=== PATIENT | male | born 1955 | race Caucasian/White ===

== ENCOUNTER 2018-06-15 11:03 | Inpatient (IN) ==
[2018-06-15] MEDS ORDERED: ENOXAPARIN 100 MG/ML SYRINGE SUBCUT STA (13:14)
[2018-06-15] MEDS ORDERED: ASPIRIN 325 MG TABLET PO STA (13:14)
[2018-06-15 13:19] LABS: Basophils # 0.1 10*3/uL (0.0-0.2); Basophils % 1.1 % (0.0-0.8); Eosinophils % 0.5 % (0.00-10.9); Hematocrit 43.7 VOL% (42.0-52.0); Hemoglobin 13.7 GM/DL (14.0-18.0); Immature Granulocytes % 0.7 %; Immature Granulocytes Absolute 0.06 #; Lymphocytes # 0.9 10*3/uL (1.4-4.0); Lymphocytes % 10.7 % (21.2-54.2); Mean Corpuscular HGB Conc 31.4 GM/DL (32-36); Mean Corpuscular Hemoglobin 29 PG (27-34); Mean Corpuscular Volume 93.4 FL (87-102); Mean Platelet Volume 11.4 FL (9.6-12.0); Monocytes # 0.8 10*3/uL (0.11-0.8); Monocytes % 8.9 % (1.7-12.7); Neutrophils # 6.9 10*3/uL (1.4-7.4); Neutrophils % 78.1 % (38.7-73.9); Platelet Count 269 T/CUMM (130-400); Red Blood Count 4.68 MC/CUMM (3.8-5.5); Red Cell Distribution Width 14.6 % (9.3-17.3); White Blood Count 8.8 T/CUMM (4-12)
[2018-06-15 13:45] LABS: Calcium 9.3 MG/DL (8.5-10.1); Osmolality,Calculated 294.3 MOS/KG (273-304)
[2018-06-15 14:00] LABS: Potassium 6.2 MMOL/L (3.5-5.1)
[2018-06-15] MEDS ORDERED: SODIUM CHLORIDE 0.9% 1,000 ML IV STA (14:01)
[2018-06-15] MEDS ORDERED: guaiFENesin/DM ER 600-30 MG TABLET PO PRN (15:28)
[2018-06-15] MEDS ORDERED: DOCUSATE SODIUM 100 MG CAPSULE PO PRN (15:28)
[2018-06-15] MEDS ORDERED: NICOTINE 21 MG/24 HR PATCH TRANSDERM PRN (15:28)
[2018-06-15] MEDS ORDERED: diphenhydrAMINE CAP 25 MG CAPSULE PO PRN (15:28)
[2018-06-15] MEDS ORDERED: ONDANSETRON 4 MG/2 ML VIAL IV PRN (15:28)
[2018-06-15] MEDS ORDERED: ACETAMINOPHEN 325 MG TABLET PO PRN (15:28)
[2018-06-15] MEDS ORDERED: SODIUM CHLORIDE 0.9% 1,000 ML IV SCH (15:30)
[2018-06-15] MEDS ORDERED: ENOXAPARIN 30 MG/0.3 ML SYRINGE SUBCUT SCH (15:30)
[2018-06-15] MEDS ORDERED: SODIUM POLYSTYRENE SULFATE 15 GM/60 ML BOTTLE PO ONE (15:32)
[2018-06-15] MEDS ORDERED: ISOSORBIDE MONONITRATE 30 MG TABLET PO SCH (16:00)
[2018-06-15] MEDS ORDERED: ALBUTEROL/IPRATROPIUM 3 ML NEB RESP TX SCH (16:00)
[2018-06-15 18:15] LABS: CKMB % 14.1 %
[2018-06-15 18:18] LABS: Troponin I 88.4 NG/ML (0.00-0.045)
[2018-06-15] MEDS: LORazepam 1 MG TABLET PO PRN (18:31)
[2018-06-15] MEDS: CARVEDILOL 3.125 MG TABLET PO SCH ×2 (18:31→21:08)
[2018-06-15] MEDS: miSOPROStol 200 MCG TABLET PO SCH ×2 (18:31→20:58)
[2018-06-15] MEDS: PANTOPRAZOLE 40 MG TABLET PO SCH (18:31)
[2018-06-15] MEDS: SODIUM BICARB INJ 150 MEQ in DEXTROSE 5% 850 ML IV SCH (18:31)
[2018-06-15] MEDS ORDERED: NITROGLYCERIN DRIP 50 MG/250 ML BOTTLE IV PRN (19:31)
[2018-06-15] MEDS: ALBUTEROL/IPRATROPIUM 3 ML NEB RESP TX SCH (19:46)
[2018-06-15 19:59] LABS: Parathyroid Hormone Intact 273.7 PG/ML (18.4-80.1)
[2018-06-15 20:43] LABS: HIV Antigen/Antibody Result Nonreactive (Nonreactive); Hepatitis A Ab IgM Quant 0.07 Index; Hepatitis A Ab IgM Result Negative (Negative); Hepatitis B Core IgM Quant 0.18 Index; Hepatitis B Core IgM Result Negative (Negative); Hepatitis B Surface Ag Quant < 0.10 Index; Hepatitis B Surface Ag Result Negative (Negative); Hepatitis C Virus Ab Quant 0.08 Index; Hepatitis C Virus Ab Result Negative (Negative)
[2018-06-15] MEDS: ACETYLCYSTEINE 600 MG CAPSULE PO SCH (20:57)
[2018-06-15] MEDS ORDERED: ROSUVASTATIN 20 MG TABLET PO SCH (21:00)
[2018-06-15 21:47] LABS: CKMB % 13.4 %
[2018-06-15] MEDS: MORPHINE 4 MG/1 ML VIAL IV PRN (22:11)
[2018-06-16] MEDS: MORPHINE 4 MG/1 ML VIAL IV PRN (01:39)
[2018-06-16] MEDS: LORazepam 1 MG TABLET PO PRN ×2 (02:22→07:47)
[2018-06-16] MEDS: ALBUTEROL/IPRATROPIUM 3 ML NEB RESP TX SCH ×3 (02:45→13:01)
[2018-06-16] MEDS: SODIUM BICARB INJ 150 MEQ in DEXTROSE 5% 850 ML IV SCH ×3 (03:10→11:22)
[2018-06-16 03:47] LABS: Basophils # 0.1 10*3/uL (0.0-0.2); Basophils % 1.5 % (0.0-0.8); Eosinophils # 0.1 10*3/uL (0.0-0.87); Eosinophils % 1.7 % (0.00-10.9); Hematocrit 33.2 VOL% (42.0-52.0); Hemoglobin 10.5 GM/DL (14.0-18.0); Immature Granulocytes % 0.3 %; Immature Granulocytes Absolute 0.02 #; Lymphocytes # 1.4 10*3/uL (1.4-4.0); Lymphocytes % 21.8 % (21.2-54.2); Mean Corpuscular HGB Conc 31.6 GM/DL (32-36); Mean Corpuscular Hemoglobin 28 PG (27-34); Mean Corpuscular Volume 89.7 FL (87-102); Mean Platelet Volume 11.5 FL (9.6-12.0); Monocytes # 0.6 10*3/uL (0.11-0.8); Monocytes % 8.6 % (1.7-12.7); Neutrophils # 4.4 10*3/uL (1.4-7.4); Neutrophils % 66.1 % (38.7-73.9); Platelet Count 243 T/CUMM (130-400); Red Cell Distribution Width 14.4 % (9.3-17.3); White Blood Count 6.6 T/CUMM (4-12)
[2018-06-16 04:12] LABS: Alanine Aminotransferase 55 U/L (16-61); Albumin 2.9 G/DL (3.4-5.0); Alkaline Phosphatase 74 U/L (45-117); Aspartate Amino Transferase 222 U/L (0-37); Bilirubin,Total < 0.39 MG/DL (0.2-1.0); Blood Urea Nitrogen 40 MG/DL (7-18); Calcium 8.2 MG/DL (8.5-10.1); Cholesterol 197 MG/DL (50-200); Glucose 125 MG/DL (74-106); HDL Cholesterol 26 MG/DL (40-60); Osmolality,Calculated 293.1 MOS/KG (273-304); Potassium 5.4 MMOL/L (3.5-5.1); Risk Ratio 7.58; Sodium 142 MMOL/L (136-145); Thyroid Stimulating Hormone 0.777 uIU/ml (0.358-3.74); Total Protein 5.8 G/DL (6.4-8.3); Triglycerides 173 MG/DL (2-150); VLDL CHOLESTEROL 34.6 MG/DL
[2018-06-16 08:05] LABS: Apearance,Urine CLEAR (Clear); Bilirubin,Urine Negative (Negative); Blood, Urine Moderate mg/dL (Negative); Glucose,Urine (UA) Negative (Negative); Ketones,Urine Negative (Negative); Nitrite,Urine Negative (Negative); Protein,Urine Negative; RBC,Urine 6 /HPF (0-4); Urine Color Straw (Yellow); Urine Specific Gravity 1.009 (1.001-1.035); Urine Urobilinogen < 2.0 EU/DL (0.2-1.0); WBC,Urine 1 /HPF (0-6)
[2018-06-16] MEDS ORDERED: POTASSIUM CHLORIDE RIDER 10 MEQ in PREMIX 1 EACH IV PRN ×2 (08:27→15:12)
[2018-06-16] MEDS ORDERED: DIAZEPAM 5 MG TABLET PO ONE (08:27)
[2018-06-16] MEDS ORDERED: MAGNESIUM SULF RIDER 2 GM in PREMIX 1 EACH IV PRN ×2 (08:27→15:12)
[2018-06-16] MEDS ORDERED: diphenhydrAMINE CAP 25 MG CAPSULE PO ONE (08:27)
[2018-06-16] MEDS ORDERED: HEPARIN/NACL 0.9% 2 UNITS/ML 1,000 ML IV ONE (08:31)
[2018-06-16] MEDS ORDERED: MIDAZOLAM 2 MG/2 ML VIAL ONE (08:54)
[2018-06-16] MEDS ORDERED: fentaNYL 100 MCG/2 ML VIAL ONE (08:55)
[2018-06-16] MEDS ORDERED: ASPIRIN EC 325 MG TABLET PO SCH ×2 (09:00→09:30)
[2018-06-16] MEDS ORDERED: HEPARIN 5,000 UNIT/1 ML VIAL ONE (09:13)
[2018-06-16 09:15] LABS: Creatinine,Urine Random 72 MG/DL; Total Protein,Urine Random 31 MG/DL; Urea Nitrogen, Urine Random 531 MG/DL
[2018-06-16] MEDS ORDERED: HEPARIN DRIP 25,000 UNITS/500 ML PREMIX IV ONE (09:24)
[2018-06-16] MEDS ORDERED: PAPAVERINE 60 MG/2 ML VIAL ONE (09:34)
[2018-06-16] MEDS ORDERED: VANCOMYCIN 1,000 MG VIAL ONE (09:34)
[2018-06-16] MEDS ORDERED: LIDOCAINE 1%/EPI INJ 20 ML VIAL ONE (09:38)
[2018-06-16] MEDS ORDERED: SODIUM CHLORIDE 0.9% 1,000 ML IV PRN (09:50)
[2018-06-16] MEDS: ACETYLCYSTEINE 600 MG CAPSULE PO SCH (10:05)
[2018-06-16] MEDS: CARVEDILOL 3.125 MG TABLET PO SCH (10:05)
[2018-06-16] MEDS: miSOPROStol 200 MCG TABLET PO SCH ×2 (10:05→13:01)
[2018-06-16] MEDS: PANTOPRAZOLE 40 MG TABLET PO SCH (10:05)
[2018-06-16] MEDS ORDERED: PHENYLEPHRINE DRIP 40 MG/250 ML PREMIX IV ONE (10:45)
[2018-06-16] MEDS ORDERED: NITROPRUSSIDE 50 MG/2 ML VIAL ONE (10:45)
[2018-06-16] MEDS ORDERED: CEFUROXIME 1,500 MG VIAL ONE (10:46)
[2018-06-16] MEDS ORDERED: ALBUMIN 5% 12.5 GM/250 ML VIAL IV ONE (10:46)
[2018-06-16 10:52] LABS: ABG Base Excess -5.2 MMOL/L (-2.5-2.5); ABG HCO3 20.2 MMOL/L (20-26); ABG Oxygen Saturation 99.5 % (95-100); ABG PCO2 39.1 MM HG (35-48); ABG PH 7.326 (7.35-7.45); ABG TCO2 18.7 MMOL/L (23-27); Glucose Heart Surgery 137 MG/DL (74-106); Hematocrit Heart Surgery 31.5 PERCENT (42-52); Hemoglobin Heart Surgery 10.2 G/DL (14.0-18.0); Ionized Calcium Arterial 1.16 MMOL/L (1.21-1.46); PCO2 Patient Temp Arterial 39.1 MMHG; PH Patient Temp Arterial 7.326; Patient Temperature 37 CELCIUS; Potassium Heart/CVR 4.6 MMOL/L (3.5-5.1); Sodium Heart/CVR 139 MMOL/L (135-145)
[2018-06-16 12:22] LABS: Hematocrit Heart Surgery 21.8 PERCENT (42-52); PCO2 Patient Temp Venous 35.9 MM HG; PH Patient Temp Venous 7.419; PO2 Patient Temp Venous 35.5 MM HG; Potassium Heart/CVR 5.5 MMOL/L (3.5-5.1); VBG Base Excess -0.9 MEQ/L (0-4); VBG HCO3 23.4 MEQ/L (24-28); VBG Oxygen Saturation 76.3 %; VBG PCO2 39.5 MMHG (41-51); VBG PH 7.389; VBG PO2 40.8 MMHG (17-40)
[2018-06-16 12:58] LABS: Hematocrit Heart Surgery 25.3 PERCENT (42-52); Hemoglobin Heart Surgery 8.1 G/DL (14.0-18.0); PCO2 Patient Temp Venous 39.3 MM HG; PH Patient Temp Venous 7.369; PO2 Patient Temp Venous 43.5 MM HG; VBG Base Excess -2.4 MEQ/L (0-4); VBG HCO3 22.2 MEQ/L (24-28); VBG Oxygen Saturation 78.9 %; VBG PCO2 39.3 MMHG (41-51); VBG PH 7.369; VBG PO2 43.5 MMHG (17-40)
[2018-06-16] MEDS ORDERED: ENOXAPARIN 80 MG/0.8 ML SYRINGE SUBCUT SCH (13:00)
[2018-06-16 13:20] LABS: Hematocrit Heart Surgery 22.5 PERCENT (42-52); Hemoglobin Heart Surgery 7.2 G/DL (14.0-18.0); PCO2 Patient Temp Venous 36.4 MM HG; PH Patient Temp Venous 7.393; PO2 Patient Temp Venous 36.6 MM HG; Potassium Heart/CVR 5.4 MMOL/L (3.5-5.1); VBG Base Excess -2.4 MEQ/L (0-4); VBG HCO3 22.1 MEQ/L (24-28); VBG Oxygen Saturation 70.6 %; VBG PCO2 36.4 MMHG (41-51); VBG PH 7.393; VBG PO2 36.6 MMHG (17-40)
[2018-06-16 14:13] LABS: ABG Base Excess -4.5 MMOL/L (-2.5-2.5); ABG HCO3 20.2 MMOL/L (20-26); ABG Oxygen Saturation 98.2 % (95-100); ABG PCO2 35.1 MM HG (35-48); ABG PH 7.378 (7.35-7.45); ABG TCO2 21.3 MMOL/L (23-27); Glucose Heart Surgery 205 MG/DL (74-106); Hemoglobin Heart Surgery 7.2 G/DL (14.0-18.0); Ionized Calcium Arterial 1.06 MMOL/L (1.21-1.46); Potassium Heart/CVR 4.2 MMOL/L (3.5-5.1); Sodium Heart/CVR 134 MMOL/L (135-145)
[2018-06-16 14:14] LABS: Patient Temperature 37 CELCIUS
[2018-06-16] MEDS ORDERED: ALBUMIN 25% 25 GM/100 ML VIAL IV ONE (14:20)
[2018-06-16] MEDS ORDERED: MAGNESIUM SULFATE 10 GM/20 ML VIAL IV ONE (14:20)
[2018-06-16] MEDS ORDERED: DEXTROSE 5% KCL 20 MEQ 20 MEQ/1,000 ML BAG IV ONE (14:20)
[2018-06-16] MEDS ORDERED: PROTAMINE SULFATE 250 MG/25 ML VIAL IV ONE (14:20)
[2018-06-16] MEDS ORDERED: HEPARIN 10,000 UNIT/10 ML VIAL ONE (14:21)
[2018-06-16] MEDS ORDERED: FUROSEMIDE 20 MG/2 ML VIAL ONE ×2 (14:21→15:09)
[2018-06-16] MEDS ORDERED: MANNITOL 12.5 GM/50 ML VIAL IV ONE (14:21)
[2018-06-16] MEDS ORDERED: SODIUM BICARBONATE 50 MEQ/50 ML SYRINGE IV ONE ×2 (14:22→15:10)
[2018-06-16] MEDS ORDERED: methylPREDNISolone SOD SUC 1,000 MG/8 ML VIAL ONE (14:22)
[2018-06-16] MEDS ORDERED: HEPARIN/NACL 0.9% 2 UNITS/ML 500 ML IV ONE (15:09)
[2018-06-16] MEDS ORDERED: SEVOFLURANE 1 UNIT/15 MINUTE INH ONE (15:09)
[2018-06-16] MEDS ORDERED: SUFentanil 250 MCG/5 ML AMP ONE (15:09)
[2018-06-16] MEDS ORDERED: MIDAZOLAM 10 MG/2 ML VIAL ONE (15:09)
[2018-06-16] MEDS ORDERED: SODIUM CHLORIDE 0.9% 250 ML IV ONE (15:10)
[2018-06-16] MEDS ORDERED: ETOMIDATE 40 MG/20 ML VIAL IV ONE (15:10)
[2018-06-16] MEDS ORDERED: NITROGLYCERIN DRIP 50 MG/250 ML BOTTLE IV ONE (15:10)
[2018-06-16] MEDS ORDERED: SODIUM CHLORIDE 0.9% 100 ML IV ONE (15:10)
[2018-06-16] MEDS ORDERED: LACTATED RINGERS 1,000 ML IV ONE (15:10)
[2018-06-16] MEDS ORDERED: PHENYLEPHRINE 10 MG/1 ML VIAL IV ONE (15:10)
[2018-06-16] MEDS ORDERED: PROTAMINE SULFATE 50 MG/5 ML VIAL IV ONE ×3 (15:10→15:33)
[2018-06-16] MEDS ORDERED: SODIUM CHLORIDE 0.9% 1,000 ML IV ONE (15:10)
[2018-06-16] MEDS ORDERED: AMINOCAPROIC ACID 5,000 MG/20 ML VIAL IV ONE (15:10)
[2018-06-16] MEDS ORDERED: VECURONIUM 10 MG VIAL IV ONE (15:10)
[2018-06-16] MEDS ORDERED: POTASSIUM CHLORIDE RIDER 20 MEQ in PREMIX 1 EACH IV PRN (15:12)
[2018-06-16] MEDS ORDERED: ONDANSETRON 4 MG/2 ML VIAL IV PRN (15:12)
[2018-06-16] MEDS ORDERED: ACETAMINOPHEN 650 MG SUPP RECTAL PRN (15:12)
[2018-06-16] MEDS ORDERED: MAGNESIUM SULF RIDER 4 GM in PREMIX 1 EACH IV PRN (15:12)
[2018-06-16] MEDS ORDERED: INSULIN REGULAR 100 UNIT/ML IV PRN (15:12)
[2018-06-16] MEDS ORDERED: MORPHINE 10 MG/1 ML VIAL IV PRN (15:12)
[2018-06-16] MEDS ORDERED: CALCIUM CHLORIDE 1,000 MG/10 ML SYRINGE IV PRN (15:12)
[2018-06-16] MEDS ORDERED: PHENYLEPHRINE DRIP 40 MG/250 ML PREMIX IV PRN (15:12)
[2018-06-16] MEDS ORDERED: MIDAZOLAM 2 MG/2 ML VIAL IV PRN (15:12)
[2018-06-16] MEDS ORDERED: LACTATED RINGERS 250 ML IV PRN (15:12)
[2018-06-16] MEDS ORDERED: VECURONIUM 10 MG VIAL IV PRN ×2 (15:12)
[2018-06-16] MEDS ORDERED: INSULIN REGULAR 100 UNIT/ML IV ONE (15:12)
[2018-06-16] MEDS ORDERED: DEXTROSE 50% 25 GM/50 ML VIAL IV PRN ×2 (15:12)
[2018-06-16 15:29] LABS: ABG Base Excess -0.4 MMOL/L (-2.5-2.5); ABG HCO3 24.1 MMOL/L (20-26); ABG Oxygen Saturation 98.4 % (95-100); ABG PH 7.385 (7.35-7.45); ABG TCO2 22.8 MMOL/L (23-27); Glucose Heart Surgery 190 MG/DL (74-106); Hematocrit Heart Surgery 26.1 PERCENT (42-52); Hemoglobin Heart Surgery 8.4 G/DL (14.0-18.0); Potassium Heart/CVR 4.4 MMOL/L (3.5-5.1)
[2018-06-16] MEDS ORDERED: SODIUM CHLORIDE 0.45% 1,000 ML IV SCH ×2 (15:30)
[2018-06-16] MEDS ORDERED: INSULIN REGULAR DRIP 100 ML IV SCH (15:30)
[2018-06-16 15:32] LABS: Basophils # 0.1 10*3/uL (0.0-0.2)
[2018-06-16 15:44] LABS: INR 1.2; PT Patient Result 12.4 SECS; Partial Thromboplastin Time 28.9 SECS (0-40)
[2018-06-16] MEDS: NITROPRUSSIDE 100 MG in DEXTROSE 5% 250 ML IV PRN ×2 (15:45→22:19)
[2018-06-16 16:03] LABS: Basophils % 0.5 % (0.0-0.8); Eosinophils # 0.1 10*3/uL (0.0-0.87); Eosinophils % 0.7 % (0.00-10.9); Hematocrit 24.3 VOL% (42.0-52.0); Immature Granulocytes % 0.8 %; Immature Granulocytes Absolute 0.09 #; Lymphocytes # 0.5 10*3/uL (1.4-4.0); Lymphocytes % 4.2 % (21.2-54.2); Mean Corpuscular HGB Conc 32.5 GM/DL (32-36); Mean Corpuscular Hemoglobin 29 PG (27-34); Mean Platelet Volume 11.7 FL (9.6-12.0); Monocytes # 0.4 10*3/uL (0.11-0.8); Neutrophils # 9.9 10*3/uL (1.4-7.4); Neutrophils % 89.8 % (38.7-73.9); Red Cell Distribution Width 14.3 % (9.3-17.3)
[2018-06-16 16:04] LABS: Albumin 2.9 G/DL (3.4-5.0); Bilirubin,Total 0.4 MG/DL (0.2-1.0); Calcium 9.5 MG/DL (8.5-10.1); Osmolality,Calculated 294.1 MOS/KG (273-304); Potassium 4.5 MMOL/L (3.5-5.1); Total Protein 5.1 G/DL (6.4-8.3)
[2018-06-16 16:07] LABS: Hemoglobin 7.9 GM/DL (14.0-18.0); Red Blood Count 2.73 MC/CUMM (3.8-5.5)
[2018-06-16 16:08] LABS: Platelet Count 138 T/CUMM (130-400)
[2018-06-16 16:17] LABS: CKMB % 7.9 %
[2018-06-16 16:19] LABS: Troponin I 93.9 NG/ML (0.00-0.045)
[2018-06-16] MEDS: SODIUM CHLORIDE 0.9% 1,000 ML IV PRN ×3 (16:53→23:45)
[2018-06-16 17:03] LABS: Band Neutrophils 2 % (0-10); Eosinophils 1 % (0-10); Lymphocytes 5 % (20-55); Platelet Estimate Decreased; Segmented Neutrophils 89 % (50-85); Total Cells Counted 100
[2018-06-16 17:04] LABS: Anisocytosis 1+; Hypochromasia 1+
[2018-06-16 17:09] LABS: Hematocrit Heart Surgery 30.3 PERCENT (42-52); Hemoglobin Heart Surgery 9.8 G/DL (14.0-18.0); PCO2 Patient Temp Venous 45.9 MM HG; PH Patient Temp Venous 7.349; PO2 Patient Temp Venous 35.2 MM HG; Potassium Heart/CVR 4.4 MMOL/L (3.5-5.1); VBG Base Excess -0.6 MEQ/L (0-4); VBG HCO3 23.4 MEQ/L (24-28); VBG Oxygen Saturation 67.5 %; VBG PCO2 45.9 MMHG (41-51); VBG PH 7.349; VBG PO2 35.2 MMHG (17-40)
[2018-06-16] MEDS: ALBUMIN 5% 12.5 GM in PREMIX 1 EACH IV PRN ×3 (18:10→20:10)
[2018-06-16 18:14] LABS: ABG Base Excess -1.8 MMOL/L (-2.5-2.5); ABG HCO3 22.9 MMOL/L (20-26); ABG Oxygen Saturation 97.9 % (95-100); ABG PCO2 40.3 MM HG (35-48); ABG PH 7.369 (7.35-7.45); ABG TCO2 21.4 MMOL/L (23-27); Glucose Heart Surgery 184 MG/DL (74-106); Hematocrit Heart Surgery 29.2 PERCENT (42-52); Hemoglobin Heart Surgery 9.4 G/DL (14.0-18.0); Potassium Heart/CVR 4.3 MMOL/L (3.5-5.1)
[2018-06-16] MEDS: MIDAZOLAM 10 MG/2 ML VIAL IV PRN (19:13)
[2018-06-16 19:42] LABS: ABG Base Excess -3.1 MMOL/L (-2.5-2.5); ABG HCO3 21.8 MMOL/L (20-26); ABG PCO2 40.7 MM HG (35-48); ABG PH 7.348 (7.35-7.45); ABG TCO2 20.5 MMOL/L (23-27); Glucose Heart Surgery 198 MG/DL (74-106); Hematocrit Heart Surgery 29.5 PERCENT (42-52); Hemoglobin Heart Surgery 9.5 G/DL (14.0-18.0); Potassium Heart/CVR 4.2 MMOL/L (3.5-5.1)
[2018-06-16] MEDS ORDERED: INSULIN LISPRO 100 UNIT/ML SUBCUT SCH (22:00)
[2018-06-16] MEDS: INSULIN REGULAR 100 UNIT/ML SUBCUT SCH (22:45)
[2018-06-16] MEDS: CHLORHEXIDINE 0.12% ORAL RINSE 60 ML BOTTLE SWISH/SPIT SCH (22:46)
[2018-06-16] MEDS: CEFUROXIME INJ 1,500 MG in SYRINGE 1 EACH IV SCH (23:04)
[2018-06-16 23:47] LABS: ABG Base Excess -1.4 MMOL/L (-2.5-2.5); ABG HCO3 23.3 MMOL/L (20-26); ABG Oxygen Saturation 98.8 % (95-100); ABG PH 7.428 (7.35-7.45); ABG TCO2 20.5 MMOL/L (23-27); Glucose Heart Surgery 175 MG/DL (74-106); Hematocrit Heart Surgery 29.3 PERCENT (42-52); Hemoglobin Heart Surgery 9.5 G/DL (14.0-18.0); Potassium Heart/CVR 4.2 MMOL/L (3.5-5.1)
[2018-06-17] MEDS: MIDAZOLAM 10 MG/2 ML VIAL IV PRN (00:12)
[2018-06-17 00:39] LABS: CKMB % 5.5 %
[2018-06-17 00:41] LABS: Troponin I 79.8 NG/ML (0.00-0.045)
[2018-06-17 01:48] LABS: ABG Base Excess -1.2 MMOL/L (-2.5-2.5); ABG HCO3 23.4 MMOL/L (20-26); ABG Oxygen Saturation 98.8 % (95-100); ABG PCO2 39.9 MM HG (35-48); ABG PH 7.382 (7.35-7.45); ABG TCO2 21.3 MMOL/L (23-27); Glucose Heart Surgery 162 MG/DL (74-106); Hematocrit Heart Surgery 33.8 PERCENT (42-52); Potassium Heart/CVR 4.8 MMOL/L (3.5-5.1)
[2018-06-17] MEDS: SODIUM CHLORIDE 0.9% 1,000 ML IV PRN (02:04)
[2018-06-17 02:26] LABS: ABG Base Excess -0.6 MMOL/L (-2.5-2.5); ABG HCO3 23.7 MMOL/L (20-26); ABG Oxygen Saturation 96.3 % (95-100); ABG PCO2 37.7 MM HG (35-48); ABG PH 7.416 (7.35-7.45); ABG PO2 93.1 MM HG (80-95); ABG TCO2 24.8 MMOL/L (23-27); Glucose Heart Surgery 151 MG/DL (74-106); Hemoglobin Heart Surgery 11.1 G/DL (14.0-18.0); Potassium Heart/CVR 4.3 MMOL/L (3.5-5.1)
[2018-06-17] MEDS: INSULIN REGULAR 100 UNIT/ML SUBCUT SCH ×3 (02:35→10:02)
[2018-06-17 03:24] LABS: ABG Base Excess -0.8 MMOL/L (-2.5-2.5); ABG HCO3 23.7 MMOL/L (20-26); ABG Oxygen Saturation 95.8 % (95-100); ABG PCO2 38.7 MM HG (35-48); ABG PH 7.396 (7.35-7.45); ABG PO2 77.9 MM HG (80-95); ABG TCO2 21.4 MMOL/L (23-27); Glucose Heart Surgery 160 MG/DL (74-106); Hematocrit Heart Surgery 33.4 PERCENT (42-52); Hemoglobin Heart Surgery 10.8 G/DL (14.0-18.0); Potassium Heart/CVR 4.2 MMOL/L (3.5-5.1)
[2018-06-17 03:27] LABS: Basophils % 0.1 % (0.0-0.8); Hematocrit 30.8 VOL% (42.0-52.0); Immature Granulocytes % 0.2 %; Immature Granulocytes Absolute 0.02 #; Lymphocytes # 0.4 10*3/uL (1.4-4.0); Lymphocytes % 4.3 % (21.2-54.2); Mean Corpuscular HGB Conc 33.4 GM/DL (32-36); Mean Corpuscular Hemoglobin 29 PG (27-34); Mean Corpuscular Volume 87.5 FL (87-102); Monocytes # 0.2 10*3/uL (0.11-0.8); Monocytes % 2.9 % (1.7-12.7); Neutrophils # 7.8 10*3/uL (1.4-7.4); Neutrophils % 92.5 % (38.7-73.9); Platelet Count 149 T/CUMM (130-400); Red Blood Count 3.52 MC/CUMM (3.8-5.5); Red Cell Distribution Width 14.3 % (9.3-17.3); White Blood Count 8.4 T/CUMM (4-12)
[2018-06-17 03:35] LABS: Hemoglobin 10.3 GM/DL (14.0-18.0)
[2018-06-17] MEDS: MORPHINE 4 MG/1 ML VIAL IV PRN ×2 (03:41→05:08)
[2018-06-17 03:56] LABS: Hypochromasia Slight; Lymphocytes 3 % (20-55); Platelet Estimate Decreased; Polychromasia Few; Segmented Neutrophils 94 % (50-85); Total Cells Counted 100
[2018-06-17 03:58] LABS: Albumin 3.3 G/DL (3.4-5.0); Bilirubin,Direct 0.2 MG/DL (0.0-0.20); Bilirubin,Total 0.9 MG/DL (0.2-1.0); Calcium 7.4 MG/DL (8.5-10.1); Osmolality,Calculated 301.4 MOS/KG (273-304); Potassium 4.3 MMOL/L (3.5-5.1); Total Protein 5.7 G/DL (6.4-8.3)
[2018-06-17] MEDS ORDERED: ALLOPURINOL 100 MG TABLET PO SCH (09:00)
[2018-06-17] MEDS: CHLORHEXIDINE 0.12% ORAL RINSE 60 ML BOTTLE SWISH/SPIT SCH ×2 (09:30→21:46)
[2018-06-17] MEDS ORDERED: FUROSEMIDE 40 MG/4 ML VIAL IV ONE (09:43)
[2018-06-17] MEDS ORDERED: DEXTROSE 50% 25 GM/50 ML VIAL IV PRN ×2 (10:06)
[2018-06-17] MEDS ORDERED: MORPHINE 4 MG/1 ML VIAL IV PRN (10:06)
[2018-06-17] MEDS ORDERED: ONDANSETRON 4 MG/2 ML VIAL IV PRN (10:06)
[2018-06-17] MEDS ORDERED: POTASSIUM CHLORIDE 20 MEQ TABLET PO PRN (10:06)
[2018-06-17] MEDS ORDERED: MAGNESIUM SULF RIDER 4 GM in PREMIX 1 EACH IV PRN (10:06)
[2018-06-17] MEDS ORDERED: GLUCAGON 1 MG VIAL IM PRN ×2 (10:06)
[2018-06-17] MEDS ORDERED: MAGNESIUM SULF RIDER 2 GM in PREMIX 1 EACH IV PRN (10:06)
[2018-06-17] MEDS ORDERED: ZALEPLON 5 MG CAPSULE PO PRN (10:06)
[2018-06-17] MEDS ORDERED: ALUMINUM/MAGNES/SIMETH MAX STR 30 ML UDCUP PO PRN (10:06)
[2018-06-17] MEDS ORDERED: ACETAMINOPHEN 325 MG TABLET PO PRN (10:06)
[2018-06-17] MEDS ORDERED: SODIUM CHLOR 0.45% KCL 20 MEQ 20 MEQ/1,000 ML BAG IV SCH (10:06)
[2018-06-17] MEDS ORDERED: MAGNESIUM HYDROXIDE SUSP 30 ML UDCUP PO PRN (10:06)
[2018-06-17] MEDS: PANTOPRAZOLE 40 MG TABLET PO SCH (10:40)
[2018-06-17] MEDS: CEFUROXIME INJ 1,500 MG in SYRINGE 1 EACH IV SCH ×2 (10:50→23:36)
[2018-06-17] MEDS ORDERED: LISINOPRIL 20 MG TABLET PO SCH (11:00)
[2018-06-17] MEDS ORDERED: amLODIPine 10 MG TABLET PO SCH (11:00)
[2018-06-17 13:06] LABS: Myeloperoxidase Antibody < 0.2 U
[2018-06-17] MEDS: CLORAZEPATE 3.75 MG TABLET PO PRN (19:55)
[2018-06-18] MEDS: CLORAZEPATE 3.75 MG TABLET PO PRN ×3 (01:49→15:21)
[2018-06-18 04:26] LABS: Basophils % 0.1 % (0.0-0.8); Hematocrit 34.5 VOL% (42.0-52.0); Hemoglobin 11.1 GM/DL (14.0-18.0); Immature Granulocytes % 0.6 %; Immature Granulocytes Absolute 0.09 #; Lymphocytes # 0.7 10*3/uL (1.4-4.0); Lymphocytes % 4.8 % (21.2-54.2); Mean Corpuscular HGB Conc 32.2 GM/DL (32-36); Mean Corpuscular Hemoglobin 29 PG (27-34); Mean Corpuscular Volume 90.3 FL (87-102); Mean Platelet Volume 12.3 FL (9.6-12.0); Monocytes # 1.1 10*3/uL (0.11-0.8); Monocytes % 7.4 % (1.7-12.7); Neutrophils # 13.3 10*3/uL (1.4-7.4); Neutrophils % 87.1 % (38.7-73.9); Platelet Count 136 T/CUMM (130-400); Red Blood Count 3.82 MC/CUMM (3.8-5.5); Red Cell Distribution Width 14.6 % (9.3-17.3); White Blood Count 15.3 T/CUMM (4-12)
[2018-06-18 04:49] LABS: Band Neutrophils 2 % (0-10); Hypochromasia 1+; Lymphocytes 8 % (20-55); Platelet Estimate Adequate; Segmented Neutrophils 81 % (50-85); Total Cells Counted 100
[2018-06-18 04:58] LABS: Albumin 3.1 G/DL (3.4-5.0); Bilirubin,Direct 0.13 MG/DL (0.0-0.20); Bilirubin,Indirect 0.3 MG/DL (0.0-1.0); Bilirubin,Total 0.4 MG/DL (0.2-1.0); CKMB % 2.8 %; Calcium 8.2 MG/DL (8.5-10.1); Osmolality,Calculated 294.3 MOS/KG (273-304); Total Protein 5.7 G/DL (6.4-8.3)
[2018-06-18 05:05] LABS: Troponin I 24.1 NG/ML (0.00-0.045)
[2018-06-18] MEDS ORDERED: FUROSEMIDE 40 MG/4 ML VIAL IV ONE (06:00)
[2018-06-18] MEDS: cloNIDine 0.1 MG TABLET PO SCH ×4 (07:00→17:41)
[2018-06-18] MEDS ORDERED: ALBUTEROL/IPRATROPIUM 3 ML NEB RESP TX PRN (08:26)
[2018-06-18] MEDS: PANTOPRAZOLE 40 MG TABLET PO SCH (08:58)
[2018-06-18] MEDS: oxyCODONE/ACETAMINOPHEN 5-325 MG TABLET PO PRN ×3 (08:59→19:46)
[2018-06-18] MEDS: FERROUS SULFATE 325 MG TABLET PO SCH (08:59)
[2018-06-18] MEDS: ASPIRIN EC 325 MG TABLET PO SCH (08:59)
[2018-06-18] MEDS: DOCUSATE SODIUM 100 MG CAPSULE PO SCH (08:59)
[2018-06-18] MEDS: CHLORHEXIDINE 0.12% ORAL RINSE 60 ML BOTTLE SWISH/SPIT SCH ×2 (08:59→22:54)
[2018-06-18] MEDS ORDERED: FUROSEMIDE 40 MG/4 ML VIAL IV SCH (16:00)
[2018-06-19] MEDS: oxyCODONE/ACETAMINOPHEN 5-325 MG TABLET PO PRN ×3 (01:25→20:44)
[2018-06-19 04:19] LABS: Basophils % 0.1 % (0.0-0.8); Eosinophils % 0.1 % (0.00-10.9); Hematocrit 34.8 VOL% (42.0-52.0); Hemoglobin 11.3 GM/DL (14.0-18.0); Immature Granulocytes % 0.6 %; Lymphocytes # 1.7 10*3/uL (1.4-4.0); Lymphocytes % 10.6 % (21.2-54.2); Mean Corpuscular HGB Conc 32.5 GM/DL (32-36); Mean Corpuscular Hemoglobin 29 PG (27-34); Mean Corpuscular Volume 90.6 FL (87-102); Mean Platelet Volume 12.1 FL (9.6-12.0); Monocytes # 1.2 10*3/uL (0.11-0.8); Monocytes % 7.1 % (1.7-12.7); Neutrophils # 13.2 10*3/uL (1.4-7.4); Neutrophils % 81.5 % (38.7-73.9); Platelet Count 149 T/CUMM (130-400); Red Blood Count 3.84 MC/CUMM (3.8-5.5); Red Cell Distribution Width 13.7 % (9.3-17.3); White Blood Count 16.2 T/CUMM (4-12)
[2018-06-19 04:54] LABS: Alanine Aminotransferase 34 U/L (16-61); Alkaline Phosphatase 57 U/L (45-117); Aspartate Amino Transferase 33 U/L (0-37); Bilirubin,Direct < 0.100 MG/DL (0.0-0.20); Bilirubin,Indirect 0.3 MG/DL (0.0-1.0); Bilirubin,Total < 0.39 MG/DL (0.2-1.0); Blood Urea Nitrogen 72 MG/DL (7-18); Calcium 8.1 MG/DL (8.5-10.1); Glucose 104 MG/DL (74-106); Osmolality,Calculated 299.4 MOS/KG (273-304); Sodium 140 MMOL/L (136-145); Total Protein 5.7 G/DL (6.4-8.3)
[2018-06-19] MEDS: ASPIRIN EC 325 MG TABLET PO SCH (08:28)
[2018-06-19] MEDS: PANTOPRAZOLE 40 MG TABLET PO SCH (08:29)
[2018-06-19] MEDS: DOCUSATE SODIUM 100 MG CAPSULE PO SCH (08:30)
[2018-06-19] MEDS: CHLORHEXIDINE 0.12% ORAL RINSE 60 ML BOTTLE SWISH/SPIT SCH ×2 (08:30→20:31)
[2018-06-19] MEDS: FERROUS SULFATE 325 MG TABLET PO SCH (08:30)
[2018-06-19] MEDS: FUROSEMIDE 40 MG/4 ML VIAL IV SCH (08:35)
[2018-06-19] MEDS ORDERED: cloNIDine 0.1 MG TABLET PO SCH (09:00)
[2018-06-19] MEDS: CARVEDILOL 3.125 MG TABLET PO SCH (20:31)
[2018-06-19] MEDS: ATORVASTATIN 40 MG TABLET PO SCH (20:31)
[2018-06-19] MEDS: CLORAZEPATE 3.75 MG TABLET PO PRN (20:44)
[2018-06-20 02:49] LABS: Calcium 8.1 MG/DL (8.5-10.1); Osmolality,Calculated 302.5 MOS/KG (273-304); Potassium 4.6 MMOL/L (3.5-5.1)
[2018-06-20] MEDS: oxyCODONE/ACETAMINOPHEN 5-325 MG TABLET PO PRN ×2 (04:00→20:51)
[2018-06-20 04:31] LABS: Basophils % 0.3 % (0.0-0.8); Eosinophils # 0.2 10*3/uL (0.0-0.87); Eosinophils % 2.1 % (0.00-10.9); Hematocrit 35.5 VOL% (42.0-52.0); Hemoglobin 11.4 GM/DL (14.0-18.0); Immature Granulocytes % 0.7 %; Immature Granulocytes Absolute 0.07 #; Lymphocytes # 1.7 10*3/uL (1.4-4.0); Lymphocytes % 17.4 % (21.2-54.2); Mean Corpuscular HGB Conc 32.1 GM/DL (32-36); Mean Corpuscular Hemoglobin 29 PG (27-34); Mean Corpuscular Volume 91.5 FL (87-102); Mean Platelet Volume 12.8 FL (9.6-12.0); Monocytes # 1.1 10*3/uL (0.11-0.8); Monocytes % 10.9 % (1.7-12.7); Neutrophils # 6.6 10*3/uL (1.4-7.4); Neutrophils % 68.6 % (38.7-73.9); Platelet Count 164 T/CUMM (130-400); Red Blood Count 3.88 MC/CUMM (3.8-5.5); Red Cell Distribution Width 13.5 % (9.3-17.3); White Blood Count 9.6 T/CUMM (4-12)
[2018-06-20] MEDS: CARVEDILOL 3.125 MG TABLET PO SCH ×2 (08:56→20:51)
[2018-06-20] MEDS: PANTOPRAZOLE 40 MG TABLET PO SCH (08:56)
[2018-06-20] MEDS: DOCUSATE SODIUM 100 MG CAPSULE PO SCH (08:56)
[2018-06-20] MEDS: ASPIRIN EC 325 MG TABLET PO SCH (08:57)
[2018-06-20] MEDS: FUROSEMIDE 40 MG/4 ML VIAL IV SCH (08:57)
[2018-06-20] MEDS: FERROUS SULFATE 325 MG TABLET PO SCH (08:57)
[2018-06-20] MEDS: CLORAZEPATE 3.75 MG TABLET PO PRN ×2 (08:57→20:51)
[2018-06-20] MEDS: CHLORHEXIDINE 0.12% ORAL RINSE 60 ML BOTTLE SWISH/SPIT SCH ×2 (10:09→20:54)
[2018-06-20] MEDS: ATORVASTATIN 40 MG TABLET PO SCH (20:51)
[2018-06-20] MEDS ORDERED: ROSUVASTATIN 20 MG TABLET PO SCH (21:00)
[2018-06-21 04:05] LABS: Basophils # 0.1 10*3/uL (0.0-0.2); Basophils % 0.5 % (0.0-0.8); Eosinophils # 0.6 10*3/uL (0.0-0.87); Eosinophils % 5.2 % (0.00-10.9); Hematocrit 36.8 VOL% (42.0-52.0); Hemoglobin 11.5 GM/DL (14.0-18.0); Immature Granulocytes % 0.5 %; Immature Granulocytes Absolute 0.05 #; Lymphocytes # 2.3 10*3/uL (1.4-4.0); Mean Corpuscular HGB Conc 31.3 GM/DL (32-36); Mean Corpuscular Hemoglobin 29 PG (27-34); Mean Corpuscular Volume 91.1 FL (87-102); Mean Platelet Volume 12.4 FL (9.6-12.0); Monocytes % 9.3 % (1.7-12.7); Neutrophils % 63.5 % (38.7-73.9); Platelet Count 214 T/CUMM (130-400); Red Blood Count 4.04 MC/CUMM (3.8-5.5); Red Cell Distribution Width 13.1 % (9.3-17.3); White Blood Count 11.1 T/CUMM (4-12)
[2018-06-21 04:42] LABS: Alanine Aminotransferase 40 U/L (16-61); Albumin 2.8 G/DL (3.4-5.0); Alkaline Phosphatase 61 U/L (45-117); Aspartate Amino Transferase 26 U/L (0-37); Bilirubin,Indirect 0.5 MG/DL (0.0-1.0); Blood Urea Nitrogen 85 MG/DL (7-18); Calcium 8.8 MG/DL (8.5-10.1); Glucose 101 MG/DL (74-106); Potassium 5.6 MMOL/L (3.5-5.1); Sodium 136 MMOL/L (136-145); Total Protein 6.4 G/DL (6.4-8.3)
[2018-06-21 08:06] VITALS: BP 103/65
[2018-06-21] MEDS: DOCUSATE SODIUM 100 MG CAPSULE PO SCH (08:08)
[2018-06-21] MEDS: FERROUS SULFATE 325 MG TABLET PO SCH (08:08)
[2018-06-21] MEDS: CARVEDILOL 3.125 MG TABLET PO SCH (08:08)
[2018-06-21] MEDS: ASPIRIN EC 325 MG TABLET PO SCH (08:08)
[2018-06-21] MEDS: FUROSEMIDE 40 MG/4 ML VIAL IV SCH (08:08)
[2018-06-21] MEDS: PANTOPRAZOLE 40 MG TABLET PO SCH (08:08)
[2018-06-21] MEDS ORDERED: ALLOPURINOL 300 MG TABLET PO SCH (09:00)
[2018-06-21] MEDS: CHLORHEXIDINE 0.12% ORAL RINSE 60 ML BOTTLE SWISH/SPIT SCH (11:32)
== END 2018-06-21 08:59 | disposition home or self-care (01) | DRG 233 ==
LOC: EDBD → N.ED 11:03 → N.EDINP 15:28 → SUATTDRO 15:28 → N.EDINP 16:48 → N.CC 16:58 → N.CVR 06-16 10:06 → N.ICU 06-17 11:36 → N.TELES 06-17 17:00
PROVIDERS: ADMIT Internal Medicine; ATTEND Internal Medicine